=== PATIENT | female | born 1955 | race Caucasian/White ===

== ENCOUNTER → 2016-10-05 | Outpatient (CLI) | payer BC, MEDICARE ==
--- NOTE | 2016-10-06 09:37 | MM ---
Reason for exam: screening (asymptomatic). Last mammogram was performed 2 years and 4 months ago. History: Patient is postmenopausal. Family history of breast cancer in mother at age 54. Took hormonal contraceptives for 16 years beginning at age 19. Physical Findings: A clinical breast exam by your physician is recommended on an annual basis and results should be correlated with mammographic findings. MG Screening Mammo w CAD Bilateral CC and MLO view(s) were taken. Prior study comparison: June 18, 2014, bilateral MG screening mammo w CAD. September 30, 2010, bilateral digital screening mammo w/CAD. There are scattered fibroglandular densities. There is no discrete abnormality. No significant changes when compared with prior studies. ASSESSMENT: Negative, BI-RAD 1 RECOMMENDATION: Routine screening mammogram of both breasts in 1 year.
== END | disposition home or self-care (01) ==
LOC: RADMAMWWP 09:47
PROVIDERS: ATTEND Obstetrics & Gynecology
DX: Z12.31 Encounter for screening mammogram for malignant neoplasm of breast (principal)

== ENCOUNTER → 2017-05-03 | Outpatient (CLI) | payer BC, MEDICARE ==
--- NOTE | 2017-05-03 10:43 | CT ---
EXAMINATION TYPE: CT abdomen pelvis w con DATE OF EXAM: 05/03/2017 COMPARISON: NONE INDICATION: Suprapubic abdominal pain DLP: 1548 mGycm, Automated exposure control for dose reduction was used. CONTRAST: 100 mL of Omnipaque 300. Study performed with Oral Contrast TECHNIQUE: Axial images were obtained from above the diaphragm to the pubic rami in the axial plane a t 5 mm thick sections. Reconstructed images are reviewed on the computer in the coronal plane. FINDINGS: Limited CT sections are obtained the lung bases. The lung bases are clear. CT ABDOMEN: Liver: There is a 0.5 cm cyst at the superior right lobe liver. Small cyst may be within the medial l eft lobe liver. 0.6 cm cyst is at the inferior pole right lobe liver. Additional hypodense area with ill-defined margins measuring approximately 0.7 cm in the lateral right lobe liver may be additional cyst. Other etiologies are not excluded. Spleen: Normal Pancreas: Normal Adrenal glands: The adrenal glands are normal. Gallbladder: Normal Kidneys: No masses are evident. No hydronephrosis is present. No cysts are present. Delayed images were obtained through the kidneys, which remain unremarkable. Aorta: Vascular calcification is within the aorta. Inferior vena cava: Normal. CT PELVIS: Loops of bowel within the abdomen and pelvis are normal. There are loops of bowel which are incom pletely distended or lack oral contrast limiting their evaluation. Fecal debris is within the colon. Contrast extends to the mid transverse colon. Appendix: Normal as visualized without contrast. Urinary bladder: Normal. Genitourinary structures: Uterus is normal. Adnexal regions are normal. Osseous structures: No suspicious lytic or sclerotic lesions. Facet changes are within the mid lumbar spine. Subcutaneous tissues appear unremarkable. IMPRESSIONS: 1. No acute changes CT abdomen and pelvis.
== END | disposition home or self-care (01) ==
LOC: RADCTMAIN 07:41
PROVIDERS: ATTEND Family Medicine
DX: R10.2 Pelvic and perineal pain (principal)
CPT/HCPCS: 74177; Q9967

== ENCOUNTER → 2018-12-19 | Outpatient (CLI) | payer BC, MEDICARE ==
--- NOTE | 2018-12-20 10:54 | MM ---
Reason for exam: screening (asymptomatic). Last mammogram was performed 2 years and 2 months ago. History: Patient is postmenopausal. Family history of breast cancer in mother at age 54. Took hormonal contraceptives for 16 years beginning at age 19. Physical Findings: A clinical breast exam by your physician is recommended on an annual basis and results should be correlated with mammographic findings. MG Screening Mammo w CAD Bilateral CC and MLO view(s) were taken. XCCL view(s) were taken of the right breast. Prior study comparison: October 05, 2016, bilateral MG screening mammo w CAD. June 18, 2014, bilateral MG screening mammo w CAD. The breast tissue is heterogeneously dense. This may lower the sensitivity of mammography. There is no discrete abnormality. No significant changes when compared with prior studies. ASSESSMENT: Negative, BI-RAD 1 RECOMMENDATION: Routine screening mammogram of both breasts in 1 year.
== END | disposition home or self-care (01) ==
LOC: RADMAMWWP 09:09
PROVIDERS: ATTEND Obstetrics & Gynecology
DX: Z12.31 Encounter for screening mammogram for malignant neoplasm of breast (principal); Z80.3 Family history of malignant neoplasm of breast
CPT/HCPCS: 77067

== ENCOUNTER → 2024-05-29 | Outpatient (CLI) | payer MEDICARE ==
--- NOTE | 2024-05-30 08:45 | MM ---
Reason for Exam: Screening (asymptomatic). Last mammogram was performed 5 year(s) and 5 month(s) ago. Patient History: Menarche at age 12. First Full-Term at age 22. Postmenopausal. Patient has history of breast feeding. Hormonal Contraceptives for 16 years from age 19 until age 36. Mother had breast cancer, age 54. Risk Values: Alexandra 5 year model risk: 3.3%. NCI Lifetime model risk: 9.9%. Prior Study Comparison: 06/18/2014 Bilateral Screening Mammogram, [facility]. 10/05/2016 Bilateral Screening Mammogram, [facility]. 12/19/2018 Bilateral Screening Mammogram, [facility]. Tissue Density: The breasts are heterogeneously dense, which may obscure small masses. Findings: Analyzed By CAD. There is no suspicious group of microcalcifications or new suspicious mass in either breast. Stable chronic nodularity or lymph nodes in the axilla. Overall Assessment: Benign, BI-RAD 2 Management: Screening Mammogram of both breasts in 1 year. . Patient should continue monthly self-breast exams. A clinical breast exam by your physician is recommended on an annual basis. This exam should not preclude additional follow-up of suspicious palpable abnormalities. Note on Alexandra scores and lifetime risk: 1. A Alexandra score greater than 3% is considered moderate risk. If this is the case, consider specialist referral to assess eligibility for a risk reducing agent. 2. If overall lifetime risk for the development of breast cancer is 20% or higher, the patient may qualify for future screening with alternating mammogram and breast MRI. [facility], , 05/30/2024 8:43 AM. Electronically signed and approved by: Chas Lamb M.D. Radiologis
== END ==
LOC: RADMAMWWP 14:53
PROVIDERS: ATTEND Family Medicine
CPT/HCPCS: 77067

== ENCOUNTER → 2024-08-14 | Outpatient (CLI) | payer MEDICARE ==
--- NOTE | 2024-08-14 13:44 | XR ---
EXAMINATION TYPE: XR lumbosacral spine min 4V DATE OF EXAM: 08/14/2024 1:35 PM INDICATION: Patient age:Female; 68 years old; Reason for study: [id number] IDD; [facility]. pain COMPARISON: CT abdomen and pelvis 05/03/2017 TECHNIQUE: Frontal, lateral , bilateral oblique and coned in L5-S1 lateral views of the spine. FINDINGS: There are 5 lumbar type vertebral bodies identified. No evidence of any acute osseous patho logy. No evidence of loss of vertebral body height is seen. Grade 1 anterolisthesis at L4 on L5 with out evidence of pars defects. Minimal dextrocurvature of the lumbar spine with apex at L3. Multilevel disc space narrowing with endplate sclerosis and anterior osteophytosis. Vacuum disc disease L5-S1. Multilevel facet arthropathy. Atherosclerotic calcification of the aorta. Pelvic phleboliths. IMPRESSION: 1. No acute process. 2. Moderate multilevel degenerative disc disease and facet arthropathy. 3. Grade 1 anterolisthesis of L4 on L5. 4. Minimal dextrocurvature of the lumbar spine. [facility], , 08/14/2024 1:42 PM
== END | disposition home or self-care (01) ==
LOC: RADXRYALE 12:04
PROVIDERS: ATTEND Physician Assistant
DX: M51.360 Other intervertebral disc degeneration, lumbar region with discogenic back pain only (principal); M47.816 Spondylosis without myelopathy or radiculopathy, lumbar region; M43.16 Spondylolisthesis, lumbar region
CPT/HCPCS: 72110